=== PATIENT | female | born 1960 | race Caucasian/White ===

== ENCOUNTER 2020-03-18 10:07 | Outpatient (CLI) | payer OTHER, SELFPAY ==
--- NOTE | ~2020-03-18 | MM_ITS ---
EXAMINATION: MM screening martha BI w aleida HISTORY: Screening mammogram, family history of breast cancer in her mother. TECHNIQUE: Craniocaudal and mediolateral oblique 3-D tomosynthesis images were obtained and synthetic 2-D images were generated. CAD analysis was submitted and interpreted. COMPARISON: 10/15/2017, 09/21/2015, 01/22/2013 BREAST PARENCHYMAL COMPOSITION: There are scattered areas of fibroglandular density. FINDINGS: There is no evidence of suspicious mass, calcification, or architectural distortion to sugg est malignancy in either breast. There has been no suspicious interval change. IMPRESSION: 1. No mammographic evidence of malignancy. 2. Recommend routine screening mammography in one year. BI-RADS Category 1: Negative Reviewed, dictated and finalized at location A. ANALYST
== END 2020-03-18 10:08 | disposition home or self-care (01) ==
LOC: ANHIMG 10:10
PROVIDERS: PCP Family Medicine Adolescent Medicine; Visit Provider Obstetrics & Gynecology
DX: Z12.31 Encounter for screening mammogram for malignant neoplasm of breast (principal)
CPT/HCPCS: 77063; 77067

== ENCOUNTER 2020-12-13 10:44 | Emergency (ER) | payer OTHER, SELFPAY ==
--- NOTE | ~2020-12-13 | XR_ITS ---
EXAMINATION: XR ribs LT 2V DATE: 12/13/2020 11:37 INDICATION: Left anterior rib injury. TECHNIQUE: 2 views of the left ribs on 3 radiographs were obtained. COMPARISON: None. FINDINGS: There is blunting of left lateral costophrenic angle. No pneumothorax. The heart size is no rmal. IMPRESSION: 1. No rib fracture. 2. Blunting of left lateral costophrenic angle, which may be a prominent fat pad or a small left pleu ral effusion. Reviewed, dictated and finalized at location A. IMPRESSION: 1. No rib fracture. 2. Blunting of left lateral costophrenic angle, which may be a prominent fat pa d or a small left pleural effusion.
[2020-12-13 11:00] VITALS: BP 146/90; PULSE 71; RESP 16; TEMP 37.2; O2SAT 99
--- NOTE | 2020-12-13 11:29 | ED.GENADULT ---
HPI - General Adult General Chief complaint: Unspecified Stated complaint: rib pain Source: patient Mode of arrival: ambulatory Limitations: no limitations History of Present Illness HPI narrative: Patient is a 60-year-old female who presents complaining of right groin pain and left rib pain. Patient reports feeling her rib pop over the weekend. She reports groin pain x 2 weeks from when she strained while on cruise. She denies all other complaints. Patient reports attempting to make appointment with PCP but was unsuccessful. She reports taking [id number] medications with limited relief. She denies chest pain or shortness of breath, she denies all other complaints at this time. MD complaint: Rib pain, groin pain Related Data Home Medications Medication Instructions Recorded Confirmed atorvastatin 10 mg PO DAILY 12/13/20 12/13/20 levothyroxine 150 mcg PO DAILY 12/13/20 12/13/20 lisinopril 10 mg PO DAILY 12/13/20 12/13/20 Allergies Allergy/AdvReac Type Severity Reaction Status Date / Time No Known Allergies Allergy Mild Verified 12/13/20 11:34 Review of Systems Review of Systems: CONSTITUTIONAL: Denies fever, chills, or sweats. EYES: Denies visual changes, redness, or discharge. ENT: Denies rhinorrhea, congestion, sore throat, or otalgia. CARDIOVASCULAR: Denies chest pain, palpitations, or edema. RESPIRATORY: Denies cough or dyspnea. GASTROINTESTINAL: Denies abdominal pain, nausea, vomiting, or diarrhea. GENITOURINARY: Denies dysuria or hematuria. SKIN: Denies rash or itching. MUSCULOSKELETAL: Reports left rib pain, right groin pain NEUROLOGIC: Denies headache, numbness, dizziness, or weakness. PSYCHIATRIC: Denies anxiety or depression. [facility] Past Medical History Medical History HTN (hypertension) Hypothyroid Surgical History Surgical History No significant past surgical history Social History Social History (Updated 12/13/20 @ 12:14 by KATHY Tamez) Smoking status: Current some day smoker Substance use: never Living arrangements: with family Comments At the time of signature, I have reviewed and agree with nursing past medical, surgical, social, and family history unless otherwise noted. Please see nursing chart for further information. There is no relevant family history pertinent to the presenting complaint. Exam Narrative: GENERAL: Well-appearing, well-nourished, and in no acute distress. HEAD: Normocephalic, atraumatic. EYES: EOMI. No redness or drainage. Conjunctiva are normal. ENT: Mucous membranes pink and moist. CHEST: No respiratory distress. Clear to auscultation. HEART: Regular rate and rhythm. No murmur appreciated. Normal peripheral pulses. EXTREMITIES: Normal range of motion. No edema. SKIN: Warm, dry, no rash. NEURO: No focal deficits. Alert and oriented x3. Gait steady. PSYCH: Normal affect. No signs of depression or anxiety. Course Vital Signs Vital signs: Vital Signs Temperature 37.2 C 12/13/20 11:00 Pulse Rate 71 12/13/20 11:00 Respiratory Rate 16 12/13/20 11:00 Blood Pressure 146/90 H 12/13/20 11:00 Pulse Oximetry 99 12/13/20 11:00 Temperature 37.2 C 12/13/20 11:00 Pulse Rate 71 12/13/20 11:00 Respiratory Rate 16 12/13/20 11:00 Blood Pressure 146/90 H 12/13/20 11:00 Pulse Oximetry 99 12/13/20 11:00 Reviewed-patient is informed that they may have pre-hypertension or hypertension based on a blood pressure reading. I recommend the patient call the primary care provider listed on their discharge instructions or a physician of their choice this week to arrange follow-up for further evaluation of possible pre-hypertension or hypertension. Medical Decision Making MDM Narrative Medical decision making narrative: Patient x-ray shows Blunting of left lateral costophrenic angle, which may be a prominent fat pad
== END 2020-12-13 12:38 | disposition home or self-care (01) ==
PROVIDERS: Emergency Provider Nurse Practitioner; PCP Family Medicine Adolescent Medicine
DX: R07.81 Pleurodynia (principal); R10.32 Left lower quadrant pain; I10 Essential (primary) hypertension; E03.9 Hypothyroidism, unspecified; F17.200 Nicotine dependence, unspecified, uncomplicated
CPT/HCPCS: 71100; 99213; G0463

== ENCOUNTER 2021-09-18 15:42 | Emergency (ER) | payer OTHER, SELFPAY ==
--- NOTE | ~2021-09-18 | XR_ITS ---
[id number] DATE: 09/18/2021 16:32 INDICATION: Fall. Right chest pain TECHNIQUE: PA chest. 3 views of the right ribs. COMPARISON: None FINDINGS: Posterior lateral right sixth and seventh rib fractures are noted. Additional rib fractures are not excluded. There is mild atelectasis at the right lung base. No pneumothorax is evident. Dextro scoliosis and diffuse idiopathic skeletal hyperostosis of the thoracic spine. Osteopenia. Normal heart size. Aortic arch calcification. IMPRESSION: Lateral right sixth and seventh rib fractures; additional fractures are not excluded Mild atelectasis at the right lung base No pneumothorax Reviewed, dictated and finalized at Location A. Reviewed, dictated and finalized at location A.
[2021-09-18 15:51] VITALS: BP 133/80; PULSE 104; RESP 18; TEMP 37.5; O2SAT 98
--- NOTE | 2021-09-18 16:05 | ED.SKABFB ---
HPI - Skin/Abscess/Foreign Bdy General Chief complaint: Skin/Abscess/Foreign Body Stated complaint: left arm non healing wound Source: patient Mode of arrival: ambulatory Limitations: no limitations History of Present Illness HPI narrative: 61-year-old female presented for complaint of right rib pain after fall 2 days ago. Also requests left arm abrasion evaluation. She states she tripped going downstairs and scraped the left arm on the wall, and struck the ribs while falling to the ground. Denies shortness of breath, wheezing, hemoptysis, dizziness. Denies hitting her head or loss of consciousness. Denies neck pain. She has been applying a dressing to the left forearm with Neosporin. MD complaint: rash Related Data Home Medications Medication Instructions Recorded Confirmed levothyroxine 150 mcg tablet 150 mcg PO DAILY 12/13/20 09/18/21 Allergies Allergy/AdvReac Type Severity Reaction Status Date / Time No Known Allergies Allergy Mild Verified 09/18/21 16:34 Review of Systems Review of Systems: CONSTITUTIONAL: Denies body aches, fever, chills, or sweats. CARDIOVASCULAR: Denies chest pain, palpitations, or edema. RESPIRATORY: Denies cough or dyspnea. GASTROINTESTINAL: Denies abdominal pain, nausea, vomiting, or diarrhea. GENITOURINARY: Denies dysuria or hematuria. SKIN: Endorses wound left forearm MUSCULOSKELETAL: Denies back pain, joint pain, or myalgia. reports right rib pain NEUROLOGIC: Denies headache, numbness, tingling, or weakness. [facility] Past Medical History Medical History History of trigger finger HTN (hypertension) Hypothyroid Obstructive sleep apnea mild 01/2020 Pure hypercholesterolemia, unspecified Surgical History Surgical History Hx of carpal tunnel repair bilateral No significant past surgical history Family History Family History Mother Breast cancer Father Brain cancer Heart disease Grandparent Diabetes mellitus Social History Social History Smoking packs per day: 1 Smoking cigarettes per day: 20.0 Years smoked: 40 Smoking pack-years: 40.00 Smoking status: Current every day smoker Tobacco type: cigarettes Second hand tobacco smoke exposure: Yes Alcohol intake: current Alcohol use details: Socially Substance use: current Substance use type: marijuana Gender identity (if verbalized by the patient): Female Sexual Orientation (if Verbalized by the Patient): Straight or Heterosexual Spiritual care concerns: No Agree to blood products: Yes Comments At time of signature, I have reviewed and agree with nursing past medical, surgical, social and family history unless otherwise noted. Please see nursing chart for further information. There is no relevant family history pertinent to the presenting complaint Exam Narrative: GENERAL: Well-appearing HEAD: Normocephalic, atraumatic. CHEST: Clear to auscultation. No respiratory distress. HEART: Regular rate and rhythm. SKIN: Warm, dry. Left forearm with 5cm x 1cm skin avulsion, no active bleeding or surrounding induration MUSC: right lateral rib pain, minimally tender with palpation no apparent deformity and no bruising/redness or lesions NEURO: Alert and oriented x3. PSYCH: Normal mood and affect Course Course Emergency Course: Patient is aware of diagnosis, understands and agrees to treatment plan. Anticipatory guidance given. Patient agrees to follow-up as directed and is aware of reasons to seek care at the emergency department. Portions of this record may have been created with voice recognition software Level of Care: Express Care Visit Vital Signs Vital signs: Vital Signs Temperature 99.5 F 09/18/21 15:51 Pulse Rate 104 H 09/18/21 15:51 Respirato
== END 2021-09-18 17:30 | disposition home or self-care (01) ==
PROVIDERS: Emergency Provider Nurse Practitioner Family
DX: S22.41XA Multiple fractures of ribs, right side, initial encounter for closed fracture (principal); W10.9XXA Fall (on) (from) unspecified stairs and steps, initial encounter; S51.802A Unspecified open wound of left forearm, initial encounter; I10 Essential (primary) hypertension; E03.9 Hypothyroidism, unspecified; G47.33 Obstructive sleep apnea (adult) (pediatric); E78.00 Pure hypercholesterolemia, unspecified
CPT/HCPCS: 71101; 99213; G0463

== ENCOUNTER 2021-11-14 08:57 | Outpatient (CLI) | payer OTHER, SELFPAY ==
--- NOTE | ~2021-11-14 | MM_ITS ---
EXAMINATION: MM screening martha BI w aleida HISTORY: Screening mammogram TECHNIQUE: Craniocaudal and mediolateral oblique 3-D tomosynthesis images were obtained and synthetic 2-D images were generated. CAD analysis was submitted and interpreted. COMPARISON: 03/18/2020, 10/15/2017, 09/21/2015 bilateral screening mammogram examinations BREAST PARENCHYMAL COMPOSITION: There are scattered areas of fibroglandular density. FINDINGS: Scattered bilateral benign calcifications. There is no evidence of suspicious mass, calcifi cation, or architectural distortion to suggest malignancy in either breast. There has been no suspici ous interval change. IMPRESSION: 1. No mammographic evidence of malignancy. 2. Recommend routine screening mammography in one year. BI-RADS Category 1: Negative Reviewed, dictated and finalized at location A.
== END 2021-11-14 08:58 | disposition home or self-care (01) ==
PROVIDERS: PCP Family Medicine Adolescent Medicine; Visit Provider Obstetrics & Gynecology
DX: Z12.31 Encounter for screening mammogram for malignant neoplasm of breast (principal)
CPT/HCPCS: 77063; 77067

== ENCOUNTER 2023-12-09 14:03 | Outpatient (CLI) | payer MEDICARE, SELFPAY ==
--- NOTE | ~2023-12-09 | MM_ITS ---
EXAMINATION: MM screening martha BI w aleida HISTORY: Screening TECHNIQUE: Craniocaudal and mediolateral oblique 3-D tomosynthesis images were obtained and synthetic 2-D images were generated. CAD analysis was submitted and interpreted. COMPARISON: Comparison to multiple prior studies sequentially, with oldest reviewed study dated 09/20. BREAST PARENCHYMAL COMPOSITION: Not dense: There are scattered areas of fibroglandular density. FINDINGS: There is no evidence of suspicious mass, calcification, or architectural distortion to sugg est malignancy in either breast. There has been no suspicious interval change. IMPRESSION: 1. No mammographic evidence of malignancy. 2. Recommend routine screening mammography in one year. BI-RADS Category 1: Negative Reviewed, dictated and finalized at location B.
== END 2023-12-09 14:04 | disposition home or self-care (01) ==
LOC: ANHIMG 14:06
PROVIDERS: PCP Family Medicine Adolescent Medicine; Visit Provider Nurse Practitioner Family
DX: Z12.31 Encounter for screening mammogram for malignant neoplasm of breast (principal)
CPT/HCPCS: 77063; 77067

== ENCOUNTER 2024-01-02 09:07 | Outpatient (CLI) | payer MEDICARE, SELFPAY ==
--- NOTE | ~2024-01-02 | DEXA_ITS ---
Bone Density Report Name: ELSA DAMON Age: 63 Sex: Female Ethnicity: White Date of : 1960 Indication: postmenopausal; screening for osteoporosis; height loss; Referring Provider: PIEDAD PAZ Study: Bone densitometry was performed. Exam Date: January 02, 2024 Accession number: [id number] Bone Density: Region BMD T-score Z-score Classification AP Spine(L1-L4) 1.039 -0.1 1.7 Normal Femoral Neck (Left) 0.685 -1.5 0.1 Osteopenia Total Hip (Left) 0.856 -0.7 0.6 Normal Femoral Neck (Right) 0.684 -1.5 0.1 Osteopenia Total Hip (Right) 0.860 -0.7 0.6 Normal Total Hip Mean 0.858 -0.7 0.6 Normal World Health Organization criteria for BMD impression classify patients as: Normal (T-score at or above -1.0), Osteopenia (T-score between -1.0 and -2.5), or Osteoporosis (T-score at or below -2.5). 10-year Fracture Risk(1): Major Osteoporotic Fracture 8.9% Hip Fracture 1.6% Reported Risk Factors: [place] (), Neck BMD=0.684, BMI=29.6, smoking (1) FRAX(R) Version 3.08. Fracture probability calculated for an untreated patient. Fracture probability may be lower if the patient has received treatment. Clinical Information Provided by Patient: Smokes Patient maximum height was 64 Menopause Age: 53 Drinks caffeinated beverages Onset of menses at age 14 Number of children 1 Impression: The patient has low bone mass, based on the Left Femoral Neck T-score. The patient has an estimated ten-year risk of hip fracture of 1.6% and an estimated ten-year risk of major fracture of 8.9%, based on the WHO FRAX algorithm. The patient has risk factors, including: smoking. Discussion: BONE DENSITY IS LOW AT ONE OR MORE SKELETAL SITES. This patient's lowest T-score is low at one or more skeletal sites. It meets the World Health Organization's (WHO) criteria for ?low bone mass? (T-score between -1.0 and -2.5). The patient's 10-year risk of fracture as calculated by FRAX is less than the threshold where pharmacological therapy is recommended by the National Osteoporosis Foundation (NOF). However, all treatment decisions require clinical judgment and consideration of individual patient factors, including patient preferences, comorbidities, previous drug use, risk factors not captured in the FRAX model (e.g., frailty, falls, vitamin D deficiency, increased bone turnover, interval significant decline in bone density) and possible under or overestimation of fracture risk by FRAX. The patient should follow a healthful lifestyle (good nutrition with adequate calcium and vitamin D, and appropriate weight-bearing exercise). Follow-Up: Consider repeating this study in 2 to 3 years to reassess this patient's status, or sooner if there is some new clinical indication. Reported by: BRINA on 01/02/2024 9:35:00 AM. Reviewed, dictated and finalized at location A. [facility] CENTERJuancarlos
== END 2024-01-02 09:08 | disposition home or self-care (01) ==
PROVIDERS: PCP Family Medicine Adolescent Medicine; Visit Provider Nurse Practitioner Family
DX: M85.89 Other specified disorders of bone density and structure, multiple sites (principal); Z78.0 Asymptomatic menopausal state
CPT/HCPCS: 77080

== ENCOUNTER 2024-06-09 11:22 | Outpatient (CLI) | payer OTHER, SELFPAY ==
--- NOTE | ~2024-06-09 | XR_ITS ---
Thoracic spine: Clinical Indication: Back pain AP and lateral views were performed. No fracture is seen. There is normal alignment of the vertebrae. There is moderate degenerative disc narrowing throughout the thoracic spine. There is probable DISH at the lower thoracic spine.. Parave rtebral soft tissues appear normal. Impression: Degenerative changes, as above. Reviewed, dictated and finalized at location . Impression: Degenerative changes, as above.
--- NOTE | ~2024-06-09 | XR_ITS ---
Cervical Spine: AP, lateral, open-mouth views Clinical History: Pain Findings: The normal lordotic curve is maintained. No fracture seen. There is grade 1 anterolisthesis of C3 over C4. There is moderate degenerative disc narrowing at C6-C7. There is mild degenerative di sc narrowing in the remainder of the cervical spine. There is moderate facet arthropathy throughout t he cervical spine. Pre-vertebral soft tissues are unremarkable. Impression: Degenerative spondylosis, as above. Reviewed, dictated and finalized at location M. Impression: Degenerative spondylosis, as above.
== END 2024-06-09 11:23 | disposition home or self-care (01) ==
LOC: MICIMG 11:24
PROVIDERS: PCP Family Medicine Adolescent Medicine; Visit Provider Nurse Practitioner Family
DX: M54.6 Pain in thoracic spine (principal); G89.29 Other chronic pain; M47.812 Spondylosis without myelopathy or radiculopathy, cervical region
CPT/HCPCS: 72040; 72070

== ENCOUNTER 2024-09-02 09:49 | Outpatient (CLI) | payer MEDICARE, SELFPAY ==
--- NOTE | ~2024-09-02 | CT_ITS ---
CT Scan of the Chest without Contrast: Clinical Indication: Lung cancer screening, nicotine dependence Technique: Contiguous sections were acquired throughout the chest without intravenous contrast. Dose reduction technique was used on this scan by utilizing automated exposure control and iterative recon struction technique. The dose-length product (DLP) was 86.84 mGy-cm. Findings: There is no evidence of any significant mediastinal, hilar or axillary lymphadenopathy. The mediastin al soft tissues appear normal. There is no evidence of pleural or pericardial effusion. 7 mm upper lobe pulmonary nodule present (axial image 21). Images through the upper abdomen reveal no abnormalities. Impression: Lung RADS 3: Probably benign. Six-month follow-up screening CT advised. Reviewed, dictated and finalized at location . Impression: Lung RADS 3: Probably benign. Six-month follow-up screening CT advised.
== END 2024-09-02 09:50 | disposition home or self-care (01) ==
LOC: MICIMG 09:49
PROVIDERS: PCP Nurse Practitioner Family; Visit Provider Nurse Practitioner Family
DX: Z12.2 Encounter for screening for malignant neoplasm of respiratory organs (principal); Z87.891 Personal history of nicotine dependence
CPT/HCPCS: 71271

== ENCOUNTER 2025-02-02 00:08 | Day surgery (SDC) | payer MEDICARE, SELFPAY ==
--- OUTSIDE RECORDS SUMMARY | 2020-11-02 02:40 | XMS_ITS | Continuity of Care Document ---
Author Organization [facility] Address [address] [address] [place] [address] Phone Care Team Providers Care Collar Tacker Name Role Phone Eliseo Lynch MD Unavailable Unavailable Allergies, Adverse Reactions, Alerts Substance Reaction Status Criticality No Known Allergies Active No Inform ation Medications Medication Instructions Dosage Effective Dates (start - stop) Status Comments hydrocodone 5 mg-acetaminophen 325 mg tablet take 1 tablet by oral route every 6 hours as needed for pain 1.00 tablet - Active cephalexin 500 mg capsule take 1 capsule by oral route every 6 hours 500 MG - Active amoxicillin 500 mg capsule - Active Chantix Continuing Month Box 1 mg tablet - Active Chantix Starting Month Box 0.5 mg (11)-1 mg (42) tablets in dose pack - Active Naprosyn 500 mg tablet take 1 tablet by oral route 2 times every day with food 500 MG - Active atorvastatin 10 mg tablet take 1 tablet by oral route every day 10 MG - Active Tirosint 150 mcg capsule take 1 capsule by oral route every day 150 MCG - Active lisinopril 10 mg tablet take 1 tablet by oral route every day 10 MG - Active Procedures Procedure Date POSTOP FOLLOW-UP VISIT INCISE FINGER TENDON SHEATH POSTOP FOLLOW-UP VISIT INCISE FINGER TENDON SHEATH OFFICE/OUTPATIENT VISIT EST Triamcinolone acet inj NOS Drugs unclassified injection INJ TENDON SHEATH/LIGAMENT Triamcinolone acet inj NOS Drugs unclassified injection INJ TENDON SHEATH/LIGAMENT OFFICE/OUTPATIENT VISIT EST POSTOP FOLLOW-UP VISIT RADEX KNE 3 VIEWS OFFICE/OUTPATIENT VISIT EST Drugs unclassified injection Methylprednisolone 80mg/ml inj 20 DRAIN/INJECT JOINT/BURSA POSTOP FOLLOW-UP VISIT RADEX SPI LUMBOSAC 2/3 VIEWS OFFICE/OUTPATIENT VISIT EST CARPAL TUNNEL SURGERY POSTOP FOLLOW-UP VISIT POSTOP FOLLOW-UP VISIT CARPAL TUNNEL SURGERY OFFICE/OUTPATIENT VISIT NEW Advance Directives Directive Yes / No Effective Date File Name Resuscitation Not Answered N/A N/A Life Support Not Answered N/A N/A Intubation Not Answered N/A N/A Antibiotics Not Answered N/A N/A IV Fluid Support Not Answered N/A N/A Tube Feed Not Answered N/A N/A Other Directive N/A N/A WARNING:The information contained in this section is historical and is provided for information only and does not constitute a legal document or any assurance that the information is still accurate. Please verify the information with the mayers of the legal document before using it for clinical purposes. Encounters Encounter Description Practice Location Reason(s) For Visit Diagnoses Date Provider Providers Copied on Encounter [facility], [address], [facility], tel:[phone] [facility] Trigger thumb, left thumb 1 Cris Gomes. [address] [place], [place], [id number]. tel:[phone] [facility], [address] [address], [place], [address], tel:[phone] [facility] No Information 1 Cris Gomes. [address] [place], [place], [id number]. tel:[phone] [facility], [address] [address], [place], [address], tel:[phone] [facility] Trigger thumb, left thumb 1 Cris Gomes. [address] [facility], [place], [place], [id number]. tel:[phone] [facility], [address] [address], [place], [address], [place] tel:[phone] [facility] Trigger thumb, right thumb 1 Cris Gomes. [address] [facility], [place], [place], [id number]. tel:[phone] [facility], [address] [address], [place], [address], [place] tel:[phone] [facility] Trigger thumb, right thumb 1 Cris Gomes. [address] [facility], [place], [place], [id number]. tel:[phone] OFFICE/OUTPA TIENT VISIT EST [facility], [address] [address], [place], [address], [place] tel:[phone] [facility] Trigger finger of left thumbTrigger finger of right thumbMass of skin of right thumbBody mass index [BMI] 35.0-35.9, adult 1 Cris Gomes. [address] [facility], [place], [place], [id number]. tel:[phone] OFFICE/OUTPA TIENT VISIT EST [facility], [address], [address], [place] tel:[phone] [facility] Trigger finger of right thumbTrigger finger of left thumb 0 Cris Gomes. [address] [place], [place], [id number]. tel:[phone] [facility], [address], [address], [place] tel:[phone] [facility] Carpal tunnel syndrome, left upper limb Mar-1 6-202 0 Cris Gomes. [address] [facility], [place], [place], [id number]. tel:[phone] OFFICE/OUTPA TIENT VISIT EST [facility], [address] [address], [place], [address], [place] tel:[phone] [facility] Right knee pain, unspecified chronicityOsteo arthritis of right knee, unspecified osteoarthritis typeBody mass index (BMI) 39.0-39.9, adult Mar-1 2-202 0 Boxihsaner Virgen. [address] [facility] [address] [facility], [place], [place], [id number]. tel:[phone] [facility], [address], [address], [place] tel:[phone] [facility] Carpal tunnel syndrome, left upper limb Mar-0 0 Cris Gomes. [address] [facility], [place], [place], [address]. tel:[phone] OFFICE/OUTPA TIENT VISIT EST [facility], [address] [address], [place], [address], [place] tel:[phone] [facility] [facility] My back and hip hurt alot (chief complaint) Low back painBody mass index (BMI) 39.0-39.9, adultPersonal history of nicotine dependenceSpond ylolisthesis at L4-L5 level Feb-2 0 Laisha Lacey. [address] [facility], [place], [place], [address]. tel:[phone] [facility], [address], [address], [place] tel:[phone] [facility] Carpal tunnel syndrome, left upper limb Feb-2 - 0 Cris Gomes. [address] [place], [place], [address]. tel:[phone] [facility], [address], [address], [place] tel:[phone] [facility] Carpal tunnel syndrome, right upper limb 0 Cris Gomes. [address] [facility], [place], [place], [id number]. tel:[phone] [facility], [address] [address], [place], [address], [place] tel:[phone] [facility] History of carpal tunnel release 0 Cris Gomes. [address] [facility], [place], [place], [id number]. tel:[phone] [facility], [address] [address], [place], [address], [place] tel:[phone] [facility] Carpal tunnel syndrome, right upper limb 0 Cris Gomes. [address] [facility], [place], [place], [id number]. tel:[phone] [facility], [address] [address], [place], [address], [place] tel:[phone] [facility] Carpal tunnel syndrome of right wristCarpal tunnel syndrome of left wrist 0 Addison Herrera. [address] [facility], [place], [place], [id number]. tel:[phone] Referring Provider: Eliseo Lynch, [address] [facility] [address], [place], [address]. tel:[phone] OFFICE/OUTPA TIENT VISIT NEW [facility], [address] [address], [place], [address], [place] tel:[phone] [facility] Carpal tunnel syndrome of left wristCarpal tunnel syndrome of right wrist 0 Cris Gomes. [address] [facility], [place], [place], [address]. tel:[phone] Referring Provider: Matt Carpenter S, [address] [facility], [place], [address]. tel:[phone] Family History Family Member Type Diagnosis Age At Onset Grandmother Problem (finding) Diabetes mellitus Father Problem (finding) Heart disease Father Problem (finding) Mother Problem (finding) malignant neop lasm of breast in first degree relative Father Problem Cancer, brain Mother Problem (finding) Payers Payer name Insurance type Covered constitution party ID Zaida walker(s) [facility] Open Acce ss IRIS E2 [id number] Social History Type Description Quantity Date Captured Comments Alcohol Use Details Unknown Caffeine Use Details Unknown Tobacco Use Status Smoking Status Heavy tobacco smoker Sex Female Chief Complaint And Reason For Visit No Information Reason For Referral Reason For Referral No Information Plan Of Treatment Date Type Action Status Goal Tobacco cessation counseling completed Goal Tobacco cessation counseling completed Goal Tobacco cessation counseling completed Goal Tobacco cessation counseling completed Goal Tobacco cessation counseling completed Goal Tobacco cessation counseling completed Goal Tobacco cessation counseling completed Goal Tobacco cessation counseling completed Referral Ordered: RADEX KNE 3 VIEWS RT knee ordered Referral Ordered: INJECTION RT knee ordered Referral Ordered: RADEX SPI LUMBOSAC 2/3 VIEWS ordered Referral Ordered: MUSC TEST DONE W/N TEST COMP (EMG/NCS) Bilateral arm ordered Patient Education Stopping Smoking: Care Instructions completed History Of Present Illness Encounter Date Complaint History Of Prese nt Illness My back and hip hurt alot Functional Status Date Functional Assessmen t No Information Instructions Date Instruction Additional Infor mation Activity as tolerated. Related t o Trigger thumb, left thumb Activity as tolerated. Related t o Trigger thumb, right thumb Giving encouragement to exercise Related to Body mass index [BMI] 35.0-35.9, adult Activity as tolerated. Related t o Carpal tunnel syndrome, left upper limb Giving encouragement to exercise Related to Body mass index (BMI) 39.0-39.9, adult Fall risk home exerc ise program handout provided Activity as tolerated. Related t o Carpal tunnel syndrome, left upper limb At this time, I feel the patient would benefit from a course of non-operative management. I will start the patient on Naprosyn 500mg p.o. b.i.d. for the next three weeks. I will also start the patient in physical therapy to work on range of motion and strengthening of the lumbar spine and modalities as seen fit by the physical therapist. I discussed with the patient the importance of continuing home therapy once formal therapy has ended. I would like to see the patient again in six weeks. All the patient's questions were answered. Related to Spondylolisthesis at L4-L5 level Take medication as directed. Rel ated to Spondylolisthesis at L4-L5 level Continue home exercise program. Related to Spondylolisthesis at L4- L5 level Discussed treatment options Rela mayco to Spondylolisthesis at L4-L5 level Dietary needs education Related to Body mass index (BMI) 39.0-39.9, adult Activity as tolerated. Related t o Carpal tunnel syndrome, right upper limb Discussed treatment options. Rel ated to Carpal tunnel syndrome of left wrist Activity as tolerated. Related t o Carpal tunnel syndrome of left wrist Activity as tolerated. Related t o Carpal tunnel syndrome of right wrist Assessments Type Assessment Date assessment Trigger thumb, left thumb Patient Care Teams Name Effective Dates (start - stop) Status Members No Information
[2025-01-15 08:58] VITALS: BMI 27.9
--- OUTSIDE RECORDS SUMMARY | 2025-02-02 00:11 | XMS_ITS | Clinical Summary ---
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 Name Role Phone Unavailable Primary Care Provider Unavailabl e Social History Tobacco Use Types Packs/Day Years Used Date Smoking Tobacco: Never Assessed Comments Unknown Sex and Gender Information Value Date Recorded Sex Assigned at Not on file Legal Sex Female 4:31 PM CDT Gender Identity Not on file Sexual Orientation Not on file Plan of Treatment Health Maintenance Due Date Last Done Comments Colorectal Cancer Screening Colonoscopy (10 Years) 1960 Hepatitis C 1976 DTaP, Tdap and Td Vaccines ( 1 - Tdap) 1977 Mammogram Screening 1998 Pneumococcal Vaccine: 50+ Ye ars (1 of 1 - PCV) 2008 Zoster Vaccines (1 of 2) 2008 Dexa Scan (General) 2023 COVID-19 Vaccine ( - 2024-2 6 season) 2024 Influenza Adult (#1) 2024 RSV Immunization or 60+ Years (1 - 1-dose 75+ series) 2033 Hepatitis A Vaccines Aged Out No long er eligible based on patient's age to complete this topic Meningococcal B Vaccine Aged Out No l onger eligible based on patient's age to complete this topic Meningococcal Vaccine Aged Out No bijan lefty eligible based on patient's age to complete this topic RSV Immunizations Under 20 Months Aged Out No longer eligible based on patient's age to complete this topic
--- OUTSIDE RECORDS SUMMARY | 2025-02-02 00:11 | XMS_ITS | Data Portability ---
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 Plan of Treatment Reminders Order Date Submit Date Provider Last Modified By Organization Details Last Modified Time Details Appointments None record ed. Lab None record ed. Referral None record ed. Procedures None record ed. Surgeries None record ed. Imaging None record ed. Medication Orders None record ed. Patient TargetsNo targets recorded. Patient Instructions Encounter Date Encounter Id Patient Instructions Last Modified By Organization Details Last Modified Time 12/10/2017 [id number] Patient counsele d to F/U immediately if temp. greater than 100.4, if is unable to urinate, increased rectal pain or any other concerns. Not available 12/10/2017 19:47:44 She will follow up in 1 - 2 weeks and I will treat her left lateral internal hemorrhoid. I discussed with her that if she does well with the first 3 treatments, she will be a total of 6 treatments. She may need to see a colon and rectal surgeon if she does not improve within the first treatments. On today's visit I spent a total of 45 minutes [id number] with the patient and over 50% of this time was spent discussing treatment options, risks/benefits of each option and alternatives. Not available 12/10/2017 19:48:54 12/17/2017 [id number] Patient counsele d to F/U immediately if temp. greater than 100.4, if is unable to urinate, increased rectal pain or any other concerns. Not available 12/17/2017 23:31:43 She will follow up in 2 - 3 weeks and I will treat her RA internal hemorrhoid. I discussed with her again she will be a total of 6 treatments. Not available 12/17/2017 23:32:17 12/31/2017 [id number] Patient counsele d to F/U immediately if temp. greater than 100.4, if is unable to urinate, increased rectal pain or any other concerns. Not available 12/31/2017 15:09:32 She will follow up in 3 - 4 weeks and I will retreat her RP. We discussed again that she will be a total of 6 tx's. Not available 12/31/2017 15:22:52 Reason for Referral None Reported. Problems Name Problem SNOMED Code Status Onset Date Resolution Date Notes Provider Name and Address Organization Details Recorded Time Pile easily reducible 665504406 Active 2017 Tx #1: 8 1.2 x 11 RP Tx #2: 8 1.2 x 10 LL Tx #3: 1.1 x 10 RA Tx #4: 03/17/18 Isa Mitchell MD [address] [place] [address],[address], [place], [address], [facility] [place] 9 15:31:32 External hemorrhoids 80114035 Active 2017 Isa Mitchell MD [address] [place] [address],[address], [place], [address], [facility] 8 19:44:43 Constipation 02701015 Active 2017 Isa Mitchell MD [address] [place] [address],[address], [place], [address], [facility] [place] 8 19:45:51 Problem Notes None recorded. Procedures Surgical History Date Name Laterality Status Provider Name and Address Organization Details Recorded Time 01/01/20 [facility] completed Isa Mitchell MD [facility], [place], [address], [facility] 12/31/2017 15:29:09 12/18/19 18 [place] [address] [place] [address],[address], [place], [address], [facility] 12/17/2017 23:30:36 12/11/19 18 IRC completed Isa Mitchell MD [address] [place] [address],[address], [place], [address], [facility] 12/10/2017 19:42:56 10/10/19 18 [facility] 12/10/2017 15:51:57 08/10/19 18 Date of Last [facility] Smear [facility] 12/10/2017 15:51:59 03/11/19 15 Colonoscopy completed Isa Mitchell MD [address] [place] [address],[address], [place], [address], [facility] 12/10/2017 19:40:30 Imaging Results None recorded. Procedure Notes None recorded. Medical Equipment None Reported. Allergies No known drug allergies Medications Name Sig Start Date Stop Date Status Note LastModified by Organization Details LastModified Time amoxicillin 500 mg capsule 12/10 completed Not Available Not Available Not Available atorvastatin 10 mg tablet active Not Available Not Available No t Available cephalexin 500 mg capsule 12/10 completed Not Available Not Available Not Available lisinopril 10 mg tablet active Not Available Not Available No t Available levothyroxine 150 mcg tablet active Not Available Not Availab le Not Available Vitals Date Recorded Body weight Body mass index (BMI) Body height Body temperature Respiratory rate Heart rate Systolic And Diastolic Provider Name and Address Organization Details Last Updated DateTime 8 495172. 66 g 39.4 kg/m2 160.02 cm 98.1 [degF] 14 /min 80 /min 120/73 mm[Hg] [facility] 8 16:02:30 Date Recorded Body height Provider Name an d Address Organization Details Last Updated DateTime 12/17/2017 160.02 cm [facility] 12/17/2017 16:29:05 Date Recorded Body height Provider Name an d Address Organization Details Last Updated DateTime 12/31/2017 160.02 cm Mira Terry [facility] 12/31/2017 15:05:26 Social History Question Answer Notes LastModified by Organizat [employer] Details LastModified Time Tobacco Smoking Status Current Every Day Smoker Allyn Bryan [facility], [facility] 12/10/2017 15:49:51 How Much Tobacco Do You Chew? None [email or web address] Information not available 12/10/2017 Tobacco Amount/Day 1 Pack [email or web address] Information not available 12/10/2017 Alcohol Use Yes [email or web address] Information not available 12/10/2017 Alcohol Amount Occasional [email or web address] Information not available 12/10/2017 Caffeine Use Yes [email or web address] Informatio n not available 12/10/2017 Caffeine Amount 3c/day [email or web address] Information not available 12/10/2017 Illicit Drug Use No [email or web address] Information not available 12/10/2017 Illicit Drug Type Marijuana (not Synth.) Former [email or web address] Information not available 12/10/2017 Type Of Tobacco Cigs [email or web address] Information not available 12/10/2017 What Was The Date Of Your Most Recent Tobacco Screening? 12/31/2017 Information not available 10/02/2018 How Many Years Have You Smoked Tobacco? 40 [email or web address] Information not available 12/10/2017 Sex: Unknown Functional Status Question Answer Note LastModified by Organizat ion Details LastModified Time What is your occupation? [employer] [email or web address] Information not available 12/10/2017 Mental Status None recorded. Family History Relationship Description Onset Age of this Age Resolved Age Notes LastModified by Organization Details LastModified Time Father Malignant neoplasm of brain 77 [email or web address] Not available 04/2017 15:48:58 Father Hypertensive disorder [email or web address] Not available 04/2017 15:49:24 Father Coronary arterioscler osis [email or web address] Not available 04/2017 15:49:30 Mother Malignant neoplasm of breast 61 [email or web address] Not available 04/2017 15:49:14 Medical History Condition Response Colon/Rectal Polyps Y Hypothyroidism Y Sleep Apnea Y Genital Warts Y High Cholesterol Y Gynecological History Statement/Question Response Number of Pregnancies? 2 Tear or Laceration During Delivery? Y Date of Last Mammogram 10/09/2017 Could You Be or Are You Currently Pregna nt? N Number of C-Sections? 0 Number of Vaginal Deliveries? 1 Accidental Bowel Leakage Post Delivery? N Episiotomy During Delivery? Y Date of Last Pap Smear 08/09/2017 Obstetrics History GPAL:G 0 P 0 0 0 0 Past Encounters Encounter ID Performer Location Encounter Start Date Encounter Closed Date Diagnosis/Indication Diagnosis SNOMED-CT Code Diagnosis ICD10 Code Diagnosis IMO Codes Diagnosis Note [id number] Isa Mitchell MD Main Office [address] [facility] [address] [place] [address] 12/10/2017 15:42:10 12/10/2017 17:16:48 Pile easily reducible 355534932 K64.1 Stage 2 - 3 internal hemorrhoid s/external hems: I do think she would benefit from infrared coagulatio n and she wants to proceed. Full informed consent was given including risks/bene fits and alternativ es. All questions were answered. Her first IRC treatment was done today on the right posterior. I did discuss with her the size and severity of her hemorrhoid s. If she does not see benefit within the first 3 treatments , she should probably see a colon and rectal surgeon to discuss her other treatment options (banding or hemorrhoid ectomy). External hemorrhoids 239 95871 K64.4 These will hopefully improve with IRC. She understand s the only way to directly treat external hemorrhoid s would be with surgery and that would be a very painful surgery. She understand s the skin tags will not go away with any non-surgic al treatment. Constipation 59011540 K5 9.00 She of course needs to continue with her high fiber diet and drinking plenty of water. I encouraged her to start a very low dose of Bene Fiber (she admitted that she does not always follow her high fiber diet). She needs to maintain soft daily BM's. [id number] Isa Mitchell MD Main Office [address] [place] [address] 12/17/2017 16:23:01 12/17/2017 17:04:20 Pile easily reducible 011945939 K64.1 Stage 2 - 3 internal hemorrhoid s/external hemorrhoid s: She is doing well with infrared coagulatio n treatment. Her 2nd treatment was done today on the LL. External hemorrhoids 239 [address]30 K64.4 Improving with IRC Constipation 44197714 K5 9.00 She is doing well with the Bene Fiber and yogurt. I encouraged her to continue this to maintain soft daily BM's. [id number] Isa Mitchell MD Main Office [address] [facility] [address] [place] [address] 12/31/2017 15:04:35 12/31/2017 15:27:18 Pile easily reducible 727063156 K64.1 Stage 2 - 3 internal hemorrhoid s/external hemorrhoid s: She is doing well with infrared coagulatio n treatment. Her 3rd treatment was done today on the right anterior. External hemorrhoids 239 46960 K64.4 Improving with IRC. She understand s the tags will not go away with non-surgic al treatment. Constipation 54239152 K5 9.00 She is doing well with the Bene Fiber and yogurt. I encouraged her to continue this to maintain soft daily BM's. Health Concerns Section Related Observation LastModified by Organization Detai ls LastModified Time None Recorded Concern Status LastModified by Organization Details LastModified Time None Recorded Advance Directives Directive None Recorded Payers Insurance Date Sequence Insurance Name Policy Number Policy Bains Covered Member ID Bains Member ID Guarantor Name 03/14/2018 1 [employer] [id number] Feli Connelly [id number] Feli Connelly Notes Date Note Type Note Provider Name and Address Organization Details Recorded Time 12/10/2017 text/html ROS as noted in the HPI This is a very pleasant 57 year old woman who has had symptoms from her hemorrhoids on and off for 32 years following a and delivery. Her symptoms have been worsening over the last 10 years and for the last 1 year she states they have been out of control. Her symptoms have been persistent and interfere with her activities so she presents today for an evaluation and to discuss her treatment options. Bleeding: She sees bright red blood on the wipe with every BM. She frequently has some drip of blood in the water and roughly every 2 weeks she has extremely heavy bleeding that takes several minutes to get it to stop. She also has leakage of blood throughout the day to the point that she has to wear a pad. She does not always see blood on the pad but she always wears one just in case. Pain: BM's themselves are not painful however she has pain after BM's and it can take hours for this to resolve. Itching: She gets a lot of external itching Discharge: It is always extremely hard to get clean after a BM. She has not only leakage of blood but also some leakage of mucous throughout the day. Prolapse: Not that she feels External swelling: She always has significant external swelling after BM's and if she is more flared. Discomfort: She has the external pain/discomfort. She has internal pressure, a sense of being blocked when trying to have a BM and a sense of incomplete emptying after BM's. Previous Hemorrhoid Treatment: She has used OTC medications and has had some prescription creams. She has never had any procedures. Previous Lower GI Endoscopy: She is up to date on her colonoscopies. Bowel Habits: As long as she is watching her diet and eating yogurt daily she has soft daily BM's. She has had problems with constipation in the past. Isa Mitchell MD [address] [place] [address],[address], [place], [address], [facility] 12/10/2017 19:49:54 12/17/2017 text/html Follow up: She did have about 3 days of pain/discomfort after the treatment but it was not bad and it did resolve. She also had some bright red blood on the wipe with BM's for the 3 days after treatment. She then had absolutely no bleeding for 3 days. Yesterday she had some pain when she had her BM (it resolved fairly quickly) and did have some drip of blood in the water. She then had 3 more times during the day that she saw blood drip in the water when she urinated and had some leak throughout the day. She had to wear a pad. She is much better today and has not had any bleeding. She is very happy with how she is doing. She did start 1/2 tsp Bene Fiber and also eats her yogurt daily (she has difficulty remembering to eat the yogurt on the weekends). Her BM's have been for the most part soft and daily. Isa Mitchell MD [facility],[address], [place], [address], [facility] 12/17/2017 23:32:47 12/31/2017 text/html No problem with tx and she is better than she had been before any treatment. She does still have bleeding with most BM's on the wipe and some drip occasionally. She does not have much leakage but has had some and feels she still needs to wear a pad. She has some discomfort but nothing like it had been before tx. She also tolerated the second tx better than the first. She continues with the Bene Fiber in yogurt daily and he BM's have been soft and daily. Isa Mitchell MD [address] [facility],[address], [place], [address], [facility] [place] 12/31/2017 15:31:17 OBGyn Episode No OBEpisode recorded.
--- OUTSIDE RECORDS SUMMARY | 2025-02-02 00:11 | XMS_ITS | Clinical Summary ---
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 Gender Identity Not on file Sexual Orientation Not on file Plan of Treatment Health Maintenance Due Date Last Done Comments DTAP/TDAP/TD VACCINES (1 - Tdap) 1977 BREAST CANCER SCREENING 1998 COLORECTAL SCREENING 2003 Colorectal Cancer Screening 2003 FIT-DNA Q 3 years 2003 FIT/FOBT Q 1 year 2003 Flex Sig/CT Colonography Q 5 years 2003 PNEUMOCOCCAL VACCINE 50+ YEARS (1 of 1 - PCV) 04/21/19 09 ZOSTER VACCINE (1 of 2) 2008 OSTEOPOROSIS SCREENING 2023 INFLUENZA VACCINE (#1) 2024 RSV VACCINE (60+ or ) (1 - 1-dose 75+ series) 2033 [facility] Care Teams Qa Manager Relationship Specialty Start Date End Date Matt Carpenter MD PCP - General Family Practice 04/17/19
[2025-02-02 08:19] VITALS: BP 115/59; PULSE 70; RESP 18; TEMP 36.1; O2SAT 100; BMI 28.5
[2025-02-02] MEDS: LACTATED RINGERS 1,000 ML 150 ML IV CONT (08:27)
--- NOTE | 2025-02-02 08:29 | P.PNAN_ITS ---
Anes - Initial Pre Proc Eval Procedure: Operation Date: 02/02/25 09:00 Proposed Procedures p Screening Colonoscopy - Rai Hopper MD Date/Time: 02/02/25 08:29 Surgeon: Rai Hopper MD Pre Op Diagnosis: Personal history of colon polyps, unspecified Patient Data Age: 64 Gender: F Height: 1.6 m Weight: 73 kg Last Vital Signs Temp 97 F L 02/02/25 08:19 Pulse 70 02/02/25 08:19 Resp 18 02/02/25 08:19 BP 115/59 L 02/02/25 08:19 Pulse Ox 100 02/02/25 08:19 O2 Del Method Room Air 02/02/25 08:19 Allergies Allergy/AdvReac Type Severity Reaction Status Date / Time No Known Allergies Allergy Mild Verified 02/02/25 08:18 Home Medications ?Medication ?Instructions ?Recorded ?Confirmed ?Type tirzepatide 15 mg/0.5 mL 15 mg subcut WEEKLY 05/06/23 02/02/25 History subcutaneous pen injector (Corinna) atorvastatin 10 mg tablet 10 mg PO DAILY #90 tabs /08/0202/02/25 Rx lisinopril 10 mg tablet See Rx Instructions .Route 0 07/23/24 02/02/25 Rx .COMPLEX #90 tabs levothyroxine 137 mcg tablet See Rx Instructions .Rout e 01/26/25 02/02/25 Rx .COMPLEX #90 tabs Patient hx anesthesia problems: none Family hx anesthesia problems: none Results Review: All pre-operative results and documents have been reviewed as part of the pre- operative evaluation. [facility] Past Medical History Medical History History of trigger finger Obstructive sleep apnea mild 01/2020 Pure hypercholesterolemia, unspecified Hypothyroid HTN (hypertension) Surgical History Surgical History Hx of carpal tunnel repair bilateral No significant past surgical history Family History Family History Mother Breast cancer Father Brain cancer Heart disease Grandparent Diabetes mellitus Social History Social History (Reviewed 02/02/25 @ 08:29 by TARIQ Munoz Smoking packs per day: 1 Smoking cigarettes per day: 20.0 Years smoked: 40 Smoking pack-years: 40.00 Smoking status: Current every day smoker Tobacco type: cigarettes Second hand tobacco smoke exposure: Yes Alcohol intake: current Alcohol use details: Socially Substance use: current Substance use type: marijuana Living arrangements: with family Occupation/Education: retired Gender identity (if verbalized by the patient): Female Sexual Orientation (if Verbalized by the Patient): Straight or Heterosexual Spiritual care concerns: No Agree to blood products: Yes Anes - Eval Final PreProcedure Day of Procedure 02/02/25 08:29 Patient weight: overweight Lungs: normal air movement Airway: Mallampati scale class II and special considerations (Caps. ) Neurological: alert and oriented Last oral intake: >/= 8 hours ASA classification: III Emergent: no Anesthetic plan: proceed Anesthesia type and monitoring: general GIVS and standard monitoring Results Review: All pre-operative results and documents have been reviewed as part of the pre- operative evaluation. HTN, hyperlipidemia, hypothyroidism, suspect CHAPO but sleep study apparently normal. Informed Consent: The patient's anesthetic plan and its attendant risks and benefits were discussed with the patient/family/POA. Questions were solicited and answers provided to the satisfaction of the patient/family/POA.
--- NOTE | 2025-02-02 08:50 | PM.HPGS ---
History of Present Illness History of Present Illness Consent: Risks, benefits, and alternatives have been discussed and questions answered. Patient agrees to proceed with procedure. Chief complaint: Personal history of colon polyps, unspecified Narrative: Feli Connelly is a 64 year old female with last colonoscopy 10 years ago Review of Systems Review of Systems: All systems reviewed & are unremarkable except as noted in HPI and below PMFSH Past Medical History Medical History History of trigger finger Obstructive sleep apnea mild 01/2020 Pure hypercholesterolemia, unspecified Hypothyroid HTN (hypertension) Surgical History Surgical History Hx of carpal tunnel repair bilateral No significant past surgical history Family History Family History Mother Breast cancer Father Brain cancer Heart disease Grandparent Diabetes mellitus Social History Social History Smoking packs per day: 1 Smoking cigarettes per day: 20.0 Years smoked: 40 Smoking pack-years: 40.00 Smoking status: Current every day smoker Tobacco type: cigarettes Second hand tobacco smoke exposure: Yes Alcohol intake: current Alcohol use details: Socially Substance use: current Substance use type: marijuana Living arrangements: with family Occupation/Education: retired Gender identity (if verbalized by the patient): Female Sexual Orientation (if Verbalized by the Patient): Straight or Heterosexual Spiritual care concerns: No Agree to blood products: Yes Meds Home Medications and Allergies Home Medications ?Medication ?Instructions ?Recorded ?Confirmed ?Type tirzepatide 15 mg/0.5 mL 15 mg subcut WEEKLY 05/06/23 02/02/25 History subcutaneous pen injector (Corinna) atorvastatin 10 mg tablet 10 mg PO DAILY #90 tabs 07/23/24 02/02/25 Rx lisinopril 10 mg tablet See Rx Instructions .Route 07/23/24 02/02/25 Rx .COMPLEX #90 tabs levothyroxine 137 mcg tablet See Rx Instructions .Route 01/26/25 02/02/25 Rx .COMPLEX #90 tabs Allergies Allergy/AdvReac Type Severity Reaction Status Date / Time No Known Allergies Allergy Mild Verified 02/02/25 08:18 Vital Signs Vital Signs - 24 hr 02/02/25 08:19 Temperature 97 F L Pulse Rate 70 Respiratory Rate 18 Blood Pressure 115/59 L Pulse Oximetry 100 Oxygen Delivery Room Air Exam Const: General: comfortable and no acute distress HENMT: Face/Nose/Sinus: Normal nares present Eyes: General: appearance normal, both eyes and all related structures Neck: Neck: no JVD Resp: Auscultation: clear to auscultation bilaterally Cardio: Rate: regular rate Rhythm: regular rhythm GI: Inspection: non-distended GI Palp: Yes Soft to palpation Skin: General skin exam: normal color Extrem: General: normal to inspection Psych: Mental Status: mental status grossly normal Assessment and Plan Assessment and plan (1) Colon cancer screening: Code(s): Z12.11 - Encounter for screening for malignant neoplasm of colon Status: Acute Assessment and Plan: colonoscopy
--- NOTE | 2025-02-02 09:02 | S_PTH ---
PATIENT: Feli Connelly LOC: [facility]#:[id number] AGE/SX: 64/F ROOM: RE02/02/[address]: Rai Hopper MD : 1960 BED: DIS: 02/02/2025 SPEC #: [id number] RECD: 02/02/25 09:53 STATUS: EFRAÍN REAnnie #: [id number] JASON: 02/02/25 09:[address]: Rai Hopper DEPT: [facility] Surgical RECD BY: Marly Carlos ENTERED: 02/02/25 09:53 SP TYPE: Surgical OTHR DR: Dory Riddle, [place] Tissues: A - Colon Polypectomy Procedures: Hematoxylin and Eosin Stain Gross and Microscopic Level 4
[2025-02-02 09:04] VITALS: BP 83/50; PULSE 67; RESP 17; O2SAT 97
[2025-02-02 09:14] VITALS: BP 81/50; PULSE 70; RESP 27; O2SAT 100
[2025-02-02 09:24] VITALS: BP 103/60; PULSE 70; RESP 20; O2SAT 100
== END 2025-02-02 09:33 | disposition home or self-care (01) ==
PROVIDERS: PCP Nurse Practitioner Family; Referring Provider Nurse Practitioner Family; Visit Provider Internal Medicine Gastroenterology
PROC: 0DJD8ZZ Inspection of Lower Intestinal Tract, Via Natural or Artificial Opening Endoscopic (ICD-10-PCS; CPT 45378; principal; 2025-02-02 09:00)
DX: Z12.11 Encounter for screening for malignant neoplasm of colon (principal); D12.5 Benign neoplasm of sigmoid colon; K64.8 Other hemorrhoids; K64.4 Residual hemorrhoidal skin tags; K57.30 Diverticulosis of large intestine without perforation or abscess without bleeding; I10 Essential (primary) hypertension; E03.9 Hypothyroidism, unspecified; E78.00 Pure hypercholesterolemia, unspecified; G47.33 Obstructive sleep apnea (adult) (pediatric); F17.210 Nicotine dependence, cigarettes, uncomplicated; F12.90 Cannabis use, unspecified, uncomplicated; Z79.85 Long-term (current) use of injectable non-insulin antidiabetic drugs; Z98.890 Other specified postprocedural states; Z80.3 Family history of malignant neoplasm of breast; Z80.8 Family history of malignant neoplasm of other organs or systems; Z82.49 Family history of ischemic heart disease and other diseases of the circulatory system
CPT/HCPCS: 45385; 88305; J2003; J2704; J7120